=== PATIENT | male | born 1960 | race Caucasian/White ===

== ENCOUNTER 2020-10-25 12:49 | Emergency (ER) | payer OTHER, SELFPAY ==
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
[2020-10-25 13:11] LABS: Glucose, Whole Blood 228 mg/dL (60-115)
--- NOTE | 2020-10-25 14:20 | PC.NURSE ---
declined by [employer]
== END 2020-10-25 14:45 | disposition expired ==
LOC: HO.ED 13:43
PROVIDERS: Emergency Provider Emergency Medicine; PCP Internal Medicine
DX: I46.9 Cardiac arrest, cause unspecified (principal)
CPT/HCPCS: 82947; 96374; 96375; 99281; 99285; J0171; J0282